=== PATIENT | female | born 1985 ===

== ENCOUNTER 2025-03-09 23:05 | Emergency (ER) | payer SELFPAY ==
[2025-03-09 23:06] VITALS: BP 148/95; PULSE 104; RESP 18; TEMP 36.7; O2SAT 98
--- NOTE | 2025-03-09 23:10 | PD.EDAMS ---
Altered Mental Status RME/HPI General Chief Complaint: Altered Mental Status Stated Complaint: AMS Time Seen by Provider: 03/09/25 23:22 Arrival date/time: 03/09/25 23:05 RME / HPI RME / HPI narrative: See [facility] for Dr. Truong's HPI Documentation. Related Data Previous Rx's ?Medication ?Instructions ?Recorded cefdinir 300 mg capsule 300 mg PO BID #14 caps 03/10/25 folic acid 1 mg tablet 1 mg PO QDAY #90 tabs 03/10/25 multivitamin 1 tab PO QDAY #90 tabs 03/10/25 ondansetron 4 mg disintegrating 4 mg PO TID PRN nausea and 03/10/25 tablet vomiting 30 days #10 tabs thiamine HCl (vitamin B1) 50 mg 50 mg PO QDAY #90 tabs 03/10/25 tablet azithromycin 500 mg tablet 500 mg PO QDAY 3 days #3 tabs 03/11/25 cefdinir 300 mg capsule 300 mg PO BID 7 days #14 caps 03/11/25 folic acid 1 mg tablet 1 mg PO QDAY #90 tabs 03/11/25 multivitamin (Daily Multi-Vitamin 1 tab PO QDAY #90 tabs 03/11/25 tablet) ondansetron 4 mg disintegrating 4 mg PO Q6H PRN nausea and 03/11/25 tablet vomiting #10 tabs thiamine HCl (vitamin B1) 50 mg 50 mg PO QDAY #90 tabs 03/11/25 tablet Allergies Allergy/AdvReac Type Severity Reaction Status Date / Time No Known Allergies Allergy Verified 03/09/25 23:16 Review of Systems Review of Systems ROS Unobtainable: unobtainable due to mental status Past Medical History Surgical History SURGICAL: Positive Abdominal Surgery ED Exam Narrative Physical exam: See [facility] for Dr. Truong's Physical Exam Documentation. Course Quality Measures none Orders Category Date Time Status EKG (ED ONLY) *Do not use* NOW Care 03/09/25 23:11 Completed Saline [Insert IV] NOW Care 03/09/25 23:10 Completed Straight [In and Out Catheter] X1 Care 03/09/25 23:[address] cervical spine wo con Stat Exams 03/10/25 00:[address] chest abdomen pelvis wo Stat Exams 03/10/25 00:[address] head/brain wo con Stat Exams 03/09/25 23:[address] head/brain wo con Stat Exams 03/10/25 01:06 Completed EKG (ED Only) Stat Exams 03/09/25 23:11 Draft US gall bladder Stat Exams 03/10/25 00:14 Completed XR chest 1V portable Stat Exams 03/09/25 23:11 Completed ABG [Arterial Blood Gas] Stat Lab 03/10/25 00:23 Completed Acetaminophen Stat Lab 03/09/25 23:11 Completed Alcohol, Blood Medical Stat Lab 03/09/25 23:11 Completed Ammonia Stat Lab 03/09/25 23:30 Completed Ammonia Stat Lab 03/10/25 03:33 Completed Amylase Stat Lab 03/09/25 23:11 Completed BNP [B-Type Natriuretic Peptide] Stat Lab 03/09/25 23:30 Completed Beta Hydroxybutyrate Stat Lab 03/09/25 23:11 Completed Bilirubin,Direct Stat Lab 03/09/25 23:11 Completed Blood Culture (Lab) Stat Lab 03/10/25 00:54 Results CBC Stat Lab 03/09/25 23:30 Completed CK [Creatine Kinase] Stat Lab 03/09/25 23:11 Completed CK [Creatine Kinase] Stat Lab 03/10/25 03:33 Completed CMP [Comprehensive Metabolic Panel] Stat Lab 03/09/25 23:11 Completed CRP [C-Reactive Protein] Stat Lab 03/10/25 00:49 Completed Drug Screen,Urine Stat Lab 03/09/25 23:50 Completed ESR [Sed Rate (ESR)] Stat Lab 03/10/25 00:49 Completed HCG,Qualitative Serum Stat Lab 03/09/25 23:11 Completed Lactate (Lactic Acid) Stat Lab 03/10/25 00:49 Completed Lactic Acid, 3 HR Stat Lab 03/10/25 04:30 Completed Magnesium Stat Lab 03/09/25 23:11 Completed Procalcitonin Stat Lab 03/10/25 00:49 Completed Salicylate Stat Lab 03/09/25 23:11 Completed TSH [Thyroid Stimulating Hormone] Stat Lab 03/09/25 23:11 Completed Troponin I Stat Lab 03/09/25 23:11 Completed UA, C/S IF [Urinalysis, C/S if Indicated] Stat Lab 03/09/25 23:50 Completed Ketorolac Inj [Toradol Inj] Med 03/10/25 02:36 Discontinued 30 mg IVP X1 ONE NALOXONE INJ (Vial) [Narcan Inj (Vial)] Med 03/09/25 23:10 Discontinued 4 mg IV X1 ONE Ondansetron Inj [Zofran Inj] Med 03/09/25 23:10 Discontinued 4 mg IVP X1 ONE Ringers Lactated 1000 ml [Lactated Ringers] 1,000 ml Med 03/09/25 23:10 Discontinued IV 1,000 mls/hr Ringers Lactated 1000 ml [Lactated Ringers] 1,000 ml Med 03/10/25 03:24 Discontinued IV 1,000 mls/hr Sodium Chloride 0.9% 1000 ml [Ns] 1,000 ml Med 03/10/25 00:14 Discontinued IV 999 mls/hr Vital Signs Vital signs: Vital Signs Temperature 98.1 F 03/09/25 23:06 Pulse Rate 104 H 03/09/25 23:06 Respiratory Rate 18 03/09/25 23:06 Blood Pressure 148/95 H 03/09/25 23:06 Pulse Oximetry (%) 98 03/09/25 23:06 Oxygen Delivery Method Room Air 03/09/25 23:06 Altered Mental Status MDM Narrative MDM Narrative:: This section includes all my notes and documentations, including HPI, PE, and ED course. Robe Truong MD HPI: 39 y/o female BIBA with AMS. She admits to drinking on most days and excessively. Went to work her normal self. Called to pick her up. He noted she was confused. She was walking away from the car. She reports no drugs, other than marijuana. He supports her claim. No other complaints. ROS: All negative except as documented in HPI. Physical Exam: General: Alert and oriented. No acute distress. Eyes: Conjunctivae and lids clear. EOMI. PERRL. ENT: No nasal congestion. Pharynx normal. Tympanic membrane normal bilaterally. Neck: Supple. No lymphadenopathy. No JVD. Heart: RRR. Lungs: No respiratory distress. Good air movement. No rhonchi, wheezing, rales. Chest: No tenderness. Abdomen: Soft with equivocal tenderness, difficult to localize. Normal bowel sounds. No distension. No rebound or guarding. Back: No CVA tenderness. Legs: No clubbing, cyanosis, edema. Skin: Warm and dry. Neuro: Alert and oriented X 3. Cranial Nerves II-XII grossly intact. No peripheral motor deficits. Musculoskeletal: All major joints and bones are not tender with no limited ROM. I reviewed EMS notes. I reviewed all diagnostic test results: My interpretation of the EKG is: Sinus tachycardia (113 bpm) with nonspecific ST-T changes. My interpretation of the chest x-ray is: NAD. My review of the Head CT report is: No acute findings. My review of the C-Spine CT report is: No fracture. My review of the Chest and abdominal CT report is: No acute findings except mild pneumonia. My review of the Gallbladder US report is: NAD. Blood/urine tests remarkable for LA 6.1, Ammonia 75, EtOH 26.1. At this point, diagnoses include: Confusion Pneumonia Alcohol abuse Dehydration Treatment here included: Narcan 4 mg IV prior to diagnostic test results (no improvement noted) IVF Zofran 4 mg Toradol 30 mg IV Significant improvement noted. Mental status returned to normal. Ammonia and LA improved. Prescribed ABX and recommended more outpatient care. Based on my best medical judgment, made decision no further evaluation or treatment indicated at this time. Patient understands and agrees to the discharge instructions customized and printed, see below. Discharge instructions from Dr. Truong: 1. After extensive evaluation, there is no immediately life-threatening condition. Such as stroke or brain tumor or heart attack. 2. Your symptoms may be due to excessive alcohol use. Quit alcohol to prevent severe injuries and illnesses in the future, some even fatal. Eat regular nutritious meals. For good hydration (you are dehydrated), increase oral fluid and maintain clear urine. If dark or yellow, increase oral fluid. Take multivitamin and folic acid and thiamine daily. 3. Take Zithromax and cefdinir for pneumonia. 4. See a private doctor on 03/12/2025 for recheck and further care, including second opinion. Ask to review all test results and official radiology reports, to make sure you receive all necessary follow-ups and monitoring. Ask for help until you are completely better, including quitting alcohol. 5. Seek immediate medical care with worsening or with any concerns. Robe Truong MD Patient data External records reviewed:: [facility] [place] previous records (No prior ED records available for review) Clinical information provided by:: EMS Social determinants that could affect healthcare access:: none Patient has the following chronic illnesses:: None reported How is presenting disease/condition affected by chronic disease/condition?: no chronic disease Evaluation data The following diagnostics were reviewed and interpreted by me:: lab results, radiology exam(s) and EKG tracing(s) (My interpretation of the EKG is: Sinus tachycardia (113 bpm) with nonspecific ST-T changes. Robe Truong MD) Lab and/or radiology exams considered but not ordered:: None Interpretation Summary: I reviewed all diagnostic test results: My interpretation of the EKG is: Sinus tachycardia (113 bpm) with nonspecific ST-T changes. My interpretation of the chest x-ray is: NAD. My review of the Head CT report is: No acute findings. My review of the C-Spine CT report is: No fracture. My review of the Chest and abdominal CT report is: No acute findings except mild pneumonia. My review of the Gallbladder US report is: NAD. Blood/urine tests remarkable for LA 6.1, Ammonia 75, EtOH 26.1. Medications / Prescriptions Medications or Prescriptions considered but not ordered:: None Medication administrations:: Medication Administration History Discontinued Medications Lactated Ringer's (Lactated Ringers) 1,000 mls @ 1,000 mls/hr IV .Q1H ONE Stop: 03/10/25 00:09 Last Infusion: 03/10/25 00:34 Dose: Infused Documented By: Admin: 03/09/25 23:34 Dose: 1,000 mls/hr Documented By: MICHAEL Sodium Chloride (Ns) 1,000 mls @ 999 mls/hr IV .Q1H1M ONE Stop: 03/10/25 01:14 Last Infusion: 03/10/25 01:39 Dose: Infused Documented By: Admin: 03/10/25 00:22 Dose: 999 mls/hr Documented By: MICHAEL Lactated Ringer's (Lactated Ringers) 1,000 mls @ 1,000 mls/hr IV .Q1H ONE Stop: 03/10/25 04:23 Last Infusion: 03/10/25 04:51 Dose: Infused Documented By: Admin: 03/10/25 03:43 Dose: 1,000 mls/hr Documented By: MICHAEL Ketorolac Tromethamine (Ketorolac Inj 30 Mg/Ml Vial) 30 mg IVP X1 ONE Stop: 03/10/25 02:37 Last Admin: 03/10/25 02:43 Dose: 30 mg Documented By: TRISHA Naloxone HCl (Naloxone Inj 0.4 Mg/Ml Vial) 4 mg IV X1 ONE Stop: 03/09/25 23:11 Last Admin: 03/09/25 23:34 Dose: 4 mg Documented By: MICHAEL Co-signed By: LAUREL Ondansetron HCl (Ondansetron Inj 2 Mg/Ml Inj 2 Ml) 4 mg IVP X1 ONE; Protocol Stop: 03/09/25 23:11 Last Admin: 03/09/25 23:35 Dose: 4 mg Documented By: MICHAEL Treatment here included: Narcan 4 mg IV prior to diagnostic test results (no improvement noted) IVF Zofran 4 mg Toradol 30 mg IV Consultations Consultation(s) initiated? (list below): No Diagnosis Differential diagnosis altered mental status: alcoholic intoxication, altered mental status, delirium, hypoglycemia, hyponatremia, subarachnoid hemorrhage and sepsis Most likely diagnosis given after review of the tests above:: Confusion Pneumonia Alcohol abuse Dehydration Admission Indicated Admission indicated?: not indicated Explain why admission is indicated or not indicated:: With significant improvement, there was no indication for admission. Admission Request Was there a request for admission?: No Disposition Plan Disposition Plan: Discharge Discharge Attestation Discharge Attestation: The patient and all family members were given an opportunity to ask questions and understood the discharge instructions. Discharge instructions specifically effects, indications for sooner follow up or return to the emergency department, and the expected course of current diagnosis. Patient condition: Stable Discharge Plan Plan Patient Disposition: HOME (Self Care) Prescriptions/Referrals Prescriptions/Med Rec: New multivitamin Tablet 1 tab PO QDAY Qty: 90 3RF folic acid 1 mg tablet 1 mg PO QDAY Qty: 90 3RF ondansetron 4 mg tablet,disintegrating 4 mg PO TID PRN (Reason: nausea and vomiting) 30 Days Qty: 10 0RF cefdinir 300 mg capsule 300 mg PO BID Qty: 14 0RF thiamine HCl (vitamin B1) 50 mg tablet 50 mg PO QDAY Qty: 90 1RF multivitamin [Daily Multi-Vitamin] Tablet 1 tab PO QDAY Qty: 90 0RF ondansetron 4 mg tablet,disintegrating 4 mg PO Q6H PRN (Reason: nausea and vomiting) Qty: 10 0RF cefdinir 300 mg capsule 300 mg PO BID 7 Days Qty: 14 0RF azithromycin 500 mg tablet 500 mg PO QDAY 3 Days Qty: 3 0RF thiamine HCl (vitamin B1) 50 mg tablet 50 mg PO QDAY Qty: 90 0RF folic acid 1 mg tablet 1 mg PO QDAY Qty: 90 0RF Referrals: No Primary/Family,Physician [Primary Care Provider] - In 1 week Problem List Clinical Impression: Confusion, Pneumonia, Alcohol abuse, Dehydration Patient/Caregiver Discharge Instructions Discharge Activity: activity as tolerated Education Materials: ED Confusion, ED Dehydration (Adult), ED Pneumonia (Adult), ED Alcohol Abuse Additional Instructions: Discharge instructions from Dr. Truong: 1. After extensive evaluation, there is no immediately life-threatening condition. Such as stroke or brain tumor or heart attack. 2. Your symptoms may be due to excessive alcohol use. Quit alcohol to prevent severe injuries and illnesses in the future, some even fatal. Eat regular nutritious meals. For good hydration (you are dehydrated), increase oral fluid and maintain clear urine. If dark or yellow, increase oral fluid. Take multivitamin and folic acid and thiamine daily. 3. Take Zithromax and cefdinir for pneumonia. 4. See a private doctor on 03/12/2025 for recheck and further care, including second opinion. Ask to review all test results and official radiology reports, to make sure you receive all necessary follow-ups and monitoring. Ask for help until you are completely better, including quitting alcohol. 5. Seek immediate medical care with worsening or with any concerns. Print Language: [place] Stand Alone Forms: Gabriella Award Info., Patient Portal Info Letter
--- NOTE | 2025-03-09 23:11 | XR_ITS ---
Examination: CT brain head without contrast. 2-D sagittal coronal reconstructions Date and time of exam: March 10, 2025, 0038 hours INDICATIONS: Altered mental status today CTDI: vol (mGy): 46.80 DLP: (mGycm): 989 Technique: Multiple CT axial sections of the brain have been obtained, 5 mm slice thickness. Contrast has not been administered. 2-D sagittal, coronal reconstructions have been obtained Low dose protocols were performed. One or more of the following dose reduction techniques were used; automated exposure control, adjustment of the mA and/or KV according to patient size, use of iterative reconstruction technique. Findings: Extensive patient motion Ventricles are nonenlarged No gross hemorrhage no gross mass effect IMPRESSION: Study is severely limited secondary to patient motion, recommend repeating the study
--- NOTE | 2025-03-09 23:11 | EKG_ITS ---
[facility] Test Date: 2025-03-09 Pat Name: MICHELLE NAGY Department: Room: - Gender: Female [employer] Operator: : [id number] Requested By: Robe Welch Order Number: [id number] Reading MD: Robe Welch Measurements Intervals [place] Rate: 113 P: 70 KS: 140 QRS: 67 QRSD: 97 T: 53 QT: 413 QTc: 567 Interpretive Statements SINUS TACHYCARDIA NONSPECIFIC ST & T-WAVE ABNORMALITY ABNORMAL RHYTHM ECG No previous ECG available for comparison /store/S0/[id number]/ecg/[id number].pdf
--- NOTE | 2025-03-09 23:11 | XR_ITS ---
EXAMINATION: AP chest single view TECHNIQUE: AP portable upright chest single view Date and time: March 10, 2025, 0003 hours INDICATIONS: Shortness of breath today FINDINGS: Mild elevation left hemidiaphragm. Normal heart size No lobar pneumonia or pulmonary edema. Osseous structures intact IMPRESSION: No active disease
[2025-03-09 23:16] VITALS: PULSE 104; BMI 24.3
[2025-03-09] MEDS: RINGERS LACTATED 1000 ML 1,000 ML IV (23:34)
[2025-03-09] MEDS: ONDANSETRON INJ 2 MG/ML INJ 2 ML 4 MG IVP (23:35)
[2025-03-09 23:37] LABS: Beta Hydroxybutyrate 0.1 mmol/L (<0.6)
[2025-03-09 23:39] LABS: Basophils # (Auto) 0.1 Thou/mm3 (0.0-0.2); Basophils % (Auto) 1 % (0-2.5); Eosinophils # (Auto) 0.0 Thou/mm3 (0.0-0.5); Eosinophils % (Auto) 0 % (0-10); Hematocrit 39.5 % (36.0-46.0); Hemoglobin 14.0 g/dL (12.0-16.0); Immature Granulocytes Auto 0.02 Thou/mm3 (0.00-0.00); Lymphocytes # (Auto) 2.6 Thou/mm3 (1.0-4.8); Lymphocytes % (Auto) 30 % (10-50); Mean Corpuscular HGB Conc 35.4 g/dl (31.0-37.0); Mean Corpuscular Hemoglobin 35.9 pg (25.0-35.0); Mean Corpuscular Volume 101 fL (80-100); Monocytes # (Auto) 0.6 Thou/mm3 (0.0-0.8); Monocytes % (Auto) 6 % (0-12); Neutrophils # (Auto) 5.3 Thou/mm3 (1.8-7.7); Neutrophils % (Auto) 62 % (37-80); Nucleated Red Blood Cell # 0.00 Thou/mm3 (0.00-0.00); Nucleated Red Blood Cell % 0 /100 WBC (0); Platelet Count 297 Thou/mm3 (140-440); RDW Standard Deviation 58.5 fL (36.4-46.3); Red Blood Count 3.90 Miln/mm3 (4.00-5.20); White Blood Count 8.5 Thou/mm3 (3.6-11.0)
[2025-03-09 23:53] LABS: Collection Type, Urine Clean Catch
[2025-03-09 23:54] LABS: Ammonia 75 uMol/L (11-32); B-Type Natriuretic Peptide < 20 pg/mL (0-100)
[2025-03-09 23:56] LABS: HCG,Qualitative Serum Negative
[2025-03-10] LABS: Amorphous Crystals,Urine Present (Absent); Bacteria,Urine Rare; Bilirubin,Urine Negative (Negative); Blood,Urine 3+ (Negative); Culture Indicated,Urine Contaminated; Glucose, Urine Negative (Negative); Ketones,Urine Negative (Negative); Leukocyte Esterase,Urine Positive (Negative); Nitrite,Urine Negative (Negative); PH,Urine 6.5 (5.0-7.0); Protein,Urine Trace (Neg - Trace); RBC,Urine 14 /hpf (0-3); Specific Gravity,Urine 1.018 (1.001-1.035); Squamous Epithelial Cell,Urine 74 /hpf (0-5); Urobilinogen,Urine Negative mg/dL (0.0-1.0); WBC,Urine 37 /hpf (0-5)
[2025-03-10 00:04] LABS: Clarity,Urine Turbid (Clear/Hazy); Color,Urine Lt-Orange (Lt Yel-Yel)
[2025-03-10 00:10] LABS: Acetaminophen < 2.0 mcg/mL (10.0-20.0); Alanine Aminotransferase 92 U/L (10-49); Albumin, Serum 4.4 gm/dL (3.5-5.0); Albumin/Globulin Ratio 1.8 (1.2-2.2); Alcohol, Blood Medical 26.1 mg/dL (0-10.0); Alkaline Phosphatase 89 U/L (46-116); Amylase 62 U/L (30-118); Anion Gap 19 (7-16); Aspartate Amino Transferase 39 U/L (0-34); BUN/Creatinine Ratio 9 Ratio (12-20); Bilirubin,Direct 0.4 mg/dL (0.0-0.3); Bilirubin,Total 1.5 mg/dL (0.3-1.2); Blood Urea Nitrogen 8 mg/dL (9-23); Calcium 8.8 mg/dL (8.3-10.6); Calcium (Corrected) 8.8 mg/dL (8.5-10.1); Carbon Dioxide 17.6 mMol/L (20.0-31.0); Chloride 104 mMol/L (98-107); Creatine Kinase 247 U/L (34-171); Creatinine (Component) 0.9 mg/dL (0.6-1.3); Estimated Creatinine Clearance 85.5 mL/min (>60); Globulin 2.5 gm/dL (2.3-3.5); Glucose 163 mg/dL (74-106); Magnesium 1.8 mg/dL (1.6-2.6); Osmolality,Calculated 283 (275-295); Potassium 3.7 mMol/L (3.4-5.1); Salicylate < 3.0 mg/dL; Sodium 141 mMol/L (136-145); Thyroid Stimulating Hormone 2.98 uIU/mL (0.55-4.78); Total Protein 6.9 gm/dL (5.7-8.2); Troponin I < 0.020 ng/mL (0.0-0.045); eGFR > 60 See Note
[2025-03-10 00:13] VITALS: BP 156/112; PULSE 118; RESP 20; TEMP 36.4; O2SAT 100
--- NOTE | 2025-03-10 00:14 | XR_ITS ---
Examination: CT cervical spine without contrast 2-D sagittal reconstructions 2-D coronal reconstructions 3-D reconstructions. Exam date and time: March 10, 2025, 1356 hours INDICATIONS: Patient fell today with injury to the neck, neck pain CTDI:vol (mGy) 12.76 DLP: (mGycm) 255 Technique: Multiple 2 mm axial sections of the cervical spine have been obtained. The coronal and sagittal reconstructions have been obtained. 3-D reconstructions have been obtained. Low dose protocols were performed. One or more of the following dose reduction techniques were used; automated exposure control, adjustment of the mA and/or KV according to patient size, use of iterative reconstruction technique. Findings: Axial sections demonstrate intact base of the skull. C1 exhibit satisfactory relationship to the odontoid. No acute cervical vertebral body fracture seen. Alignment posterior spinous processes satisfactory. Impression: No acute cervical fracture. Advise clinical correlation and follow-up accordingly
--- NOTE | 2025-03-10 00:14 | XR_ITS ---
Examination: Abdomen sonogram, Limited Date and time of exam: March 10, 2025, 0110 hours INDICATIONS: Sepsis alert, generalized abdominal pain today Technique: Real-time silverman scale transabdominal sonographic images of the upper abdomen obtained. Findings: Normal gallbladder Normal common bile duct 0.2 cm Pancreatic head 2.3 cm Liver 16.1 cm smooth contour Normal hepatopetal portal venous flow Patent IVC IMPRESSION: Normal gallbladder Normal common bile duct
--- NOTE | 2025-03-10 00:14 | XR_ITS ---
Examination: CT chest, without intravenous contrast. CT abdomen, without intravenous contrast. CT pelvis, without intravenous contrast. 2-D sagittal and coronal reconstructions. 3-D reconstructions. Date and time of exam: March 10, 2025, 0159 hours INDICATIONS: Patient fell today with injury to the chest and abdomen, chest pain abdomen pain CTDI vol (mgy) 8.93 DLP (MGycm) 641 Technique: Multiple CT images, 3.0 mm slice thickness, obtained chest, abdomen, pelvis, with the high-resolution 64 slice scanner.. Sagittal and coronal 2-D reconstructions are obtained. 3-D reconstructions Low dose protocols were performed. One or more of the following dose reduction techniques were used; automated exposure control, adjustment of the mA and/or KV according to patient size, use of iterative reconstruction technique. Findings: Limited noncontrast study Thoracic aorta pulmonary arteries intact No pneumothorax Mild opacity right base, consider mild pneumonia mild pulmonary contusion image 248 4 mm noncalcified nodule in the right middle lobe Manubrium and body of the sternum intact Thoracic lumbar sacral segments intact Ribs intact No liver splenic or renal laceration No gallstones Abdominal aorta intact with no free blood in the abdomen Negative for pneumoperitoneum Urinary bladder intact Bones of the pelvis hips intact IMPRESSION: Mild pneumonia versus pulmonary contusion right base, clinical correlation advised No pneumothorax or hemothorax No abdominal parenchymal laceration Abdominal aorta intact No free blood in the abdomen or pelvis 4 mm noncalcified pulmonary nodule right middle lobe, advise follow-up
[2025-03-10 00:15] LABS: Amphetamine/Methamp Scrn,U Negative (Negative); Barbiturate Screen,Urine Negative (Negative); Benzodiazepines Screen,Urine Negative (Negative); Benzoylecgonine Screen, Ur Negative (Negative); Fentanyl Screen,Urine Negative (Negative); Opiate Screen,Urine Negative (Negative); THC Screen,Urine Positive (Negative)
[2025-03-10] MEDS: SODIUM CHLORIDE 0.9% 1000 ML 1,000 ML 999 ML IV (00:22)
[2025-03-10 00:31] LABS: Base Excess -5 (-3-3); HCO3 18 mEq/L (20-26); Inspired Oxygen, FIO2 21 %; O2 Saturation 99 % (91-98); PCO2 29 mmHg (32.0-48.0); PO2 111 mmHg (83-108); pH, Arterial 7.40 (7.35-7.45)
[2025-03-10 00:33] LABS: Allen Test Performed/OK; Puncture Site Right Radial
--- NOTE | 2025-03-10 01:06 | XR_ITS ---
Examination: CT brain head without contrast. 2-D sagittal coronal reconstructions Date and time of exam: March 10, 2025, 0154 hours INDICATIONS: Patient fell today with injury to the head, head pain CTDI: vol (mGy): 48 DLP: (mGycm): 936 Technique: Multiple CT axial sections of the brain have been obtained, 5 mm slice thickness. Contrast has not been administered. 2-D sagittal, coronal reconstructions have been obtained Low dose protocols were performed. One or more of the following dose reduction techniques were used; automated exposure control, adjustment of the mA and/or KV according to patient size, use of iterative reconstruction technique. Findings: Extensive patient motion No gross hemorrhage mass effect or midline shift IMPRESSION: Severely limited study, extensive patient motion No gross hemorrhage mass effect or midline shift Cranial vault grossly intact Repeat the study as clinically warranted
[2025-03-10 01:16] LABS: Sed Rate (ESR) < 1 mm/hr (0-20)
[2025-03-10 01:28] LABS: Lactate (Lactic Acid) 6.1 mMol/L (0.4-2.0)
--- NOTE | 2025-03-10 01:33 | PRELIM_ITS ---
CT scan of the head without intravenous contrast (axial sections with sagittal and coronal reformats). March 10, 2025 0038 hours Clinical history: Altered mental status. Comparison: No prior study is available for comparison. Findings: The evaluation is markedly limited due to motion artifacts. There is no definitive evidence of intracranial hemorrhage, mass effect or midline shift, to the extent visualized. No definitive wedge shaped acute infarcts are detected. Please note that subtle early infarcts are better assessed using diffusion weighted MR imaging if clinically indicated. Basal ganglia calcifications are present bilaterally. The ventricles are grossly unremarkable. No definitive evidence of calvarial fracture to the extent visualized. Impression: Limited evaluation due to motion artifacts. Suggest repeat study with adequate motion control if clinically indicated. No definitive evidence of intracranial hemorrhage, mass effect or midline shift, to the extent visualized. Other findings as described above. Report Electronically Signed By: Jason Trivedi 03/10/2025 1:32:46 AM [EST]
--- NOTE | 2025-03-10 01:55 | PRELIM_ITS ---
Gallbladder ultrasound. March 10, 2025 at 0110 hours Clinical history: Right upper quadrant tenderness. Comparison: None. Findings: The liver measuring 16.1 cm and demonstrates slightly heterogeneous echotexture. No intrahepatic biliary ductal dilatation. The main portal vein is patent and demonstrates hepatopetal flow. No gallbladder calculus, wall thickening or pericholecystic fluid is demonstrated. Sonographic Lo sign is negative as per the technologist's note. The common bile duct is normal in caliber at 2 mm. The pancreatic tail is obscured by bowel gas. The pancreas to the extent visualized is unremarkable. Impression: No sonographic evidence of cholelithiasis, acute cholecystitis or biliary obstruction. Other findings as described above. Suggest clinical correlation and follow up accordingly. Report Electronically Signed By: Jason Trivedi 03/10/2025 1:54:49 AM [EST]
--- NOTE | 2025-03-10 02:31 | PRELIM_ITS ---
CT scan of the head without intravenous contrast (axial sections with sagittal and coronal reformats) March 10, 2025 0154 hours Clinical History: Altered mental status. Compared with the prior study dated March 10, 2025 at 0038 hours. Findings: The evaluation is slightly limited due to motion artifacts. No definitive evidence of intracranial hemorrhage, mass effect or midline shift, to the extent visualized. No definitive wedge shaped acute infarcts are detected. Please note that subtle early infarcts are better assessed using diffusion weighted MR imaging if clinically indicated. The ventricles and CSF spaces are unremarkable. The calvarium is intact. The mastoid air cells and the visualized paranasal sinuses are clear. Impression: Limited evaluation due to motion artifacts. No definitive evidence of intracranial hemorrhage, midline shift or calvarial fracture, to the extent visualized. If there are persistent clinical symptoms or additional clinical concerns consider an MRI. Other findings as described above. Report Electronically Signed By: Jason Trivedi 03/10/2025 2:31:07 AM [EST]
--- NOTE | 2025-03-10 02:35 | PRELIM_ITS ---
CT scan of the cervical spine without intravenous contrast (axial sections with sagittal and coronal reformats) March 10, 2025 0156 hours Clinical History: Trauma. No prior study is available for comparison. Findings: There is no evidence of acute fracture or traumatic subluxation. There is mild reversal of cervical lordosis, which may be due to muscle spasm or patient positioning. There is a posterior central disc extrusion at the C6-C7 level with caudal extension, causing mild indentation of the cord surface. There is no significant neural foraminal narrowing. The prevertebral soft tissues are unremarkable. Impression: 1. No evidence of acute fracture or traumatic subluxation. 2. Degenerative changes as above described. 3. Other findings as described above. Suggest clinical correlation and follow up accordingly. Report Electronically Signed By: Jason Trivedi 03/10/2025 2:34:17 AM [EST]
[2025-03-10 02:37] LABS: C-Reactive Protein < 0.5 mg/dL (0.0-0.9); Procalcitonin < 0.04 ng/ml (0.0-0.49)
[2025-03-10] MEDS: KETOROLAC INJ 30 MG/ML VIAL IVP (02:43)
--- NOTE | 2025-03-10 03:20 | PRELIM_ITS ---
CT scan of the chest, abdomen and pelvis without intravenous contrast (axial sections with sagittal and coronal reformats) March 10, 2025 0159 hours Clinical History: Fall, chest, abdomen and pelvis trauma. Comparison: Correlated with the ultrasound gallbladder study done earlier today. Findings: There is a 4 mm indeterminate nodule in the right middle lobe (axial image 96/343). Small subpleural ground-glass opacities are seen in the right lung base posteriorly. There is no aspiration pneumonia. No pleural effusion or pneumothorax is seen. The thoracic aorta is unremarkable on this noncontrast study. There is no mediastinal hematoma or aortic injury. The trachea and esophagus are unremarkable. There is no pericardial effusion. There is focal fatty infiltration in the left lobe of the liver adjacent to the falciform ligament. The gallbladder, spleen, adrenals and pancreas are unremarkable on this noncontrast study. There are 2 mm non-obstructing bilateral renal calculi. There is no hydroureteronephrosis. There is no bowel obstruction. The appendix is within normal limits (axial image 245/343). A moderate amount of fecal material is seen in the colon. The urinary bladder is unremarkable. The uterus is unremarkable. Subcentimeter follicles are seen in the ovaries bilaterally. There is no free fluid or free air. The abdominal aorta is unremarkable on this noncontrast study. The vertebrae are normal in height and alignment. There are small marginal osteophytes involving a few vertebrae. There is no evidence of acute fracture. Please note that evaluation of soft tissue/vascular structures and bowel loops is limited due to absence of IV and oral contrast. Impression: Limited evaluation due to absence of oral and intravenous contrast. 1. Small subpleural ground-glass opacities in the right lung base posteriorly, which may be due to atelectasis versus lung contusions. 2. A 4 mm indeterminate nodule in the right middle lobe. 3. No evidence of acute visceral or bony injury to the abdomen or pelvis on this noncontrast study. 4. Other findings as described above. Suggest correlation with clinical findings, comparison with prior studies and follow up accordingly. Discussion Details: Results Discussed With : Dr. Truong at 03:15 AM 03/10/2025 Report Electronically Signed By: Jason Trivedi 03/10/2025 3:19:22 AM [EST]
[2025-03-10] MEDS: RINGERS LACTATED 1000 ML 1,000 ML IV (03:43)
[2025-03-10 03:57] LABS: Ammonia 45 uMol/L (11-32)
[2025-03-10 04:05] LABS: Creatine Kinase 244 U/L (34-171)
[2025-03-10 04:09] LABS: Reflex Lactate? Y
[2025-03-10 04:40] LABS: Lactic Acid, 3 HR 3.3 mMol/L (0.4-2.0)
[2025-03-10 04:44] VITALS: BP 143/96; PULSE 97; RESP 20; TEMP 36.6; O2SAT 100
[2025-03-10 05:02] VITALS: BP 143/96; PULSE 89; RESP 15; O2SAT 98
== END 2025-03-10 05:04 | disposition home or self-care (01) ==
PROVIDERS: Emergency Provider Emergency Medicine
DX: E86.0 Dehydration (principal); F10.10 Alcohol abuse, uncomplicated; J18.9 Pneumonia, unspecified organism; Y90.1 Blood alcohol level of 20-39 mg/100 ml
CPT/HCPCS: 36415; 36600; 51701; 70450; 71045; 71250; 72125; 74176; 76705; 80053; 80307; 80320; 80329; 81001; 82010; 82140; 82150; 82248; 82550; 82803; 83605; 83735; 83880; 84145; 84443; 84484; 84703; 85025; 85652; 86140; 87040; 93005; 96361; 96374; 96375; 99284; J1885; J2312; J2405; J7030; J7120; G0480